=== PATIENT | female | born 1990 | race Caucasian/White ===

== ENCOUNTER 2016-09-23 12:32 | Outpatient (CLI) | payer OTHER ==
[2016-09-23 13:08] VITALS: BMI 27.2
[2016-09-23 13:21] LABS: SPECIFIC GRAVITY 1.015 (1.001-1.030); URINE BILIRUBIN NEGATIVE (NEGATIVE); URINE BLOOD NEGATIVE (NEGATIVE); URINE GLUCOSE (UA) NEGATIVE (NEGATIVE); URINE LEUKOCYTE ESTERASE NEGATIVE (NEGATIVE); URINE NITRITE NEGATIVE (NEGATIVE); URINE PROTEIN NEGATIVE (NEGATIVE); URINE UROBILINOGEN NORMAL (0-1 mg/dl)
[2016-09-23 13:23] LABS: URINE APPEARANCE CLEAR; URINE COLOR YELLOW
[2016-09-23] MEDS ORDERED: IV START KIT ONE (13:49)
[2016-09-23] MEDS ORDERED: LACTATED RINGERS 1,000 ML ONE (13:49)
[2016-09-23] MEDS ORDERED: ONDANSETRON 4 MG/2ML 2 ML VIAL IV PRN (13:51)
[2016-09-23] MEDS ORDERED: LACTATED RINGERS 1,000 ML IV SCH (14:00)
[2016-09-23 14:23] LABS: HEMATOCRIT 28.5 % (37.0-47.0); HEMOGLOBIN 9.3 gm/l (12.0-16.0); MEAN CELL VOLUME 89.1 fl (81.0-99.0); MEAN CORPUSCULAR HEMOGLOBIN 29.1 pg (27.0-31.0); MEAN CORPUSCULAR HGB CONC 32.6 g/dl (33.0-37.0); RED CELL DISTRIBUTION WIDTH 13.1 % (11.5-14.5)
--- NOTE | 2016-09-23 15:21 | US ---
OB FOLLOW UP COMPARISON: 08/04/2016 HISTORY: Gestational age 27 weeks 4 days. STEFAN 12/19/2016. . Uterine contractions. Pelvic pain check cervical length, fluid, placenta, and position. FINDINGS: Gestation: Single. Position: Cephalic. Placenta: Posterior. No previa. No abruption. Maturation grade II Amniotic fluid index: 10.4 cm (5th percentile 9.4 cm. 50th percentile 14.6 cm). Cervix: Normal. 3.5 cm. No funneling with fundal pressure. Heart rate: 144 bpm IMPRESSION: 1. Cervix length 3.5 cm with no funneling. 2. Low normal amniotic fluid index 10.4 cm. 3. Normal posterior placenta. 4. Cephalic position.
--- NOTE | 2016-09-23 17:54 | PCMOBT ---
OB Triage - Subjective DIAMOND Murray ETHAN LANDEROS is a 25 year old at 27w4d who presents to L & D triage c/o low abd cramping. No bleeding, no discharge. She has also hed mild gi sx with an aggravation of her nausea. No emesis, and she is hungry. Pt denies any precipitating factors. This started this morning when she got up. - Physical Exam General: Other (Appears serious and mildly uncomfortable.) Neurological: Alert, Oriented X4 Respiratory: Clear to Auscultation Cardiac: Regular Rate Abdomen: Soft, Non Tender (Uterus soft, high, non tender. Fetus feels high up. Mild soreness on right side of uterus, but no guarding or rebound. With a cramp discomfort goes around to lower back.), Gravid (Baby active) Extremeties: No Edema Skin: No Rash Contractions: Present (but short (10-20secs) and freq (q1-2 min)) - Pelvic Exam External Genitalia: Normal Appearance Vaginal Vault: Normal Cervix: Closed and Long (high, hard to feel. No presenting part in pelvis.) Uterus: Gravid - Heart Tones Baseline: 135 Variability: Minimal Accelerations: Present Decelerations: Non-Present - Assessment/ Plan 25 year old at 27w4d here for low abd cramping. She is indeed having uterine irritability, of which she is aware. No evidence of a bladder infection. No cervical findings by digital exam or US. CBC normal WBC but mild anemia. Pt improved after 1000cc of LR and IV zofran. She ate some and is keeping fluids down. I am not sure the etiology of this uterine irritability. Options discussed. Pt is choosing to go home; she will rest and push fluids. If this does not improve or if symptoms worsen, pt will call or return. Otherwise she will see Dr Peralta next week. Pt noted to have low normal NANCY (10.4) Return precautions given: including that she should return if she has decreased movement, if she has LOF, vaginal bleeding or contractions such that she thinks she's in labor.
== END 2016-09-23 16:32 | disposition home or self-care (01) ==
LOC: FBC 12:32 → FBCOUT 12:32
PROVIDERS: ATTEND Obstetrics & Gynecology
DX: O26.892 Other specified pregnancy related conditions, second trimester (principal); Z3A.27 27 weeks gestation of pregnancy
CPT/HCPCS: 96374; 96361 ×2; 85027; 81003; 87081; 36415; 76816; 59050; 81002; J2405; J7120; G0463

== ENCOUNTER 2016-12-08 13:37 | Outpatient (CLI) | payer OTHER ==
[2016-12-08 14:01] VITALS: BMI 29.7
[2016-12-08] MEDS ORDERED: HYDROXYZINE HCL 50 MG/ML VIAL IM ONE (15:59)
== END 2016-12-08 16:50 | disposition home or self-care (01) ==
LOC: FBCOUT 13:37 → FBC 13:38 → FBCOUT 16:50
PROVIDERS: ATTEND Obstetrics & Gynecology
DX: O47.9 False labor, unspecified (principal); Z3A.00 Weeks of gestation of pregnancy not specified
CPT/HCPCS: 96372; 59025; J3410; G0463